=== PATIENT | female | born 1990 | race Caucasian/White ===

== ENCOUNTER 2017-12-20 16:49 | Emergency (ER) | payer BC ==
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
[2017-12-20] MEDS ORDERED: DIPHTH/TETANUS/ACEL. PERTUSSIS IM ONE (17:10)
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
[2017-12-20 17:55] LABS: INR 1.07
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
[2017-12-20 18:08] LABS: PLATELET COUNT, AUTOMATED 225 K/uL (150-450)
[2017-12-20] MEDS ORDERED: KETOROLAC 30 MG/ML VIAL IVP ONE (18:15)
[2017-12-20] MEDS ORDERED: ORPHENADRINE 60MG/2ML INJ IVP ONE (18:15)
[2017-12-20] MEDS ORDERED: oxyCODONE/ACETAMIN 5/325MG TH 2 TAB/BOTTLE PO ONE (18:15)
[2017-12-20] MEDS ORDERED: OXYC-373 PO (18:17)
[2017-12-20] MEDS ORDERED: METH-543 PO (18:17)
[2017-12-20 18:31] VITALS: BP 132/89
== END 2017-12-20 18:35 | disposition home or self-care (01) ==
LOC: ER 16:57
DX: S16.1XXA Strain of muscle, fascia and tendon at neck level, initial encounter (principal); S01.83XA Puncture wound without foreign body of other part of head, initial encounter; V49.88XA Car occupant (driver) (passenger) injured in other specified transport accidents, initial encounter
CPT/HCPCS: 70450; 71045; 72125; 72170; 80320; 83605; 83690; 85025; 85610; 85730; 96374; 96375; 99284; J1885; J2360; 82040; 82247; 82310; 82374; 82435; 82565; 82947; 84075; 84132; 84155; 84295; 84450; 84460; 84520

== ENCOUNTER → 2017-12-20 | Outpatient (CLI) | payer OTHER, BC ==
[~2017-12-20] MED LIST: METH-543 PO; OXYC-373 PO
== END ==
LOC: AMB 16:07
PROVIDERS: ATTEND Nurse Practitioner
DX: S01.81XA Laceration without foreign body of other part of head, initial encounter (principal); R51 Headache; V49.88XA Car occupant (driver) (passenger) injured in other specified transport accidents, initial encounter; Y92.411 Interstate highway as the place of occurrence of the external cause
CPT/HCPCS: A0425; A0429

== ENCOUNTER → 2018-03-19 | Outpatient (REF) | payer BC ==
[2018-03-19 12:10] LABS: PLATELET COUNT, AUTOMATED 198 K/uL (150-450)
== END ==
PROVIDERS: ATTEND Nurse Practitioner Family
DX: R50.9 Fever, unspecified (principal)
CPT/HCPCS: 82040; 82247; 82310; 82374; 82435; 82565; 82947; 84075; 84132; 84155; 84295; 84450; 84460; 84520; 85025